=== PATIENT | female | born 1960 | race Caucasian/White ===

== ENCOUNTER → 2024-10-18 12:57 | Outpatient (REF) | payer MEDICARE, OTHER, SELFPAY | LOC: WDC 12:57 | PROVIDERS: ATTENDING PHYSICIAN Physician Assistant | DX: Z87.891 Personal history of nicotine dependence (principal); Z12.31 Encounter for screening mammogram for malignant neoplasm of breast | CPT/HCPCS: 71271; 77063; 77067 ==